=== PATIENT | female | born 1970 | race Caucasian/White ===

== ENCOUNTER 2017-04-28 10:42 | Emergency (ER) | payer OTHER ==
[~2017-04-28] VITALS: Ht 160 cm; Wt 75.0 kg
[2017-04-28 10:45] VITALS: Ht 160 cm; Wt 75.0 kg
[2017-04-28] MEDS ORDERED: HYDROCODONE/APAP (10/325) TAB PO ONE (11:30)
--- NOTE | 2017-04-28 13:04 | RADRPT ---
PROCEDURE: CT abdomen and pelvis without contrast. CLINICAL INDICATION: Abdominal pain. TECHNIQUE: CT scan of the abdomen and pelvis without contrast was performed on a multi-slice CT [facility] . Sagittal and coronal reformatted images were obtained from the axial source images. One or more of the following dose reduction techniques were used: - Automated exposure control. - Adjustment of the mA and/or kV according to patient size. - Use of iterative reconstruction technique. DLP 723.5 mGycm. CTDIvol 11.3 mGy COMPARISON: None FINDINGS: Bibasilar atelectasis is present. Bilateral breast implants are partially visualized. There is limit ed evaluation of the solid viscera from the lack of IV contrast. The kidneys are symmetric bilaterally with no evidence of renal or ureteral calculi. There is no hy dronephrosis or perinephric stranding. There is normal density of the liver with no gross focal lesion or biliary ductal dilatation. The gallbladder is unremarkable without inflammation. The spleen is unremarkable without mass. The adrenal glands are within normal limits without mass. The pancreas is unremarkable without focal lesion or surrounding inflammatory changes. There is no bowel obstruction or focal bowel inflammation. The appendix is not seen. There is a mil dly fecal filled colon. There is no free air or free fluid. There are no enlarged lymph nodes. The aorta is unremarkable and there is no acute osseous abnormality. The uterus and adnexal structures are grossly unremarkable. IMPRESSION: No evidence of renal or ureteral calculi or hydronephrosis. No evidence of bowel obstruction or visible inflammation. The appendix is not seen. There is a mil dly fecal filled colon. Delete the RPTAT: AA .Fortunato Carvajal MD, MD Date Time Electronically viewed and signed by .Fortunato Carvajal MD, MD on 04/28/2017 13:04 .Mikala/
[2017-04-28] MEDS ORDERED: KETOROLAC 60 MG INJ IM STA (13:08)
[2017-04-28] MEDS ORDERED: HYDR-902 PO (13:10)
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
[2017-04-28 14:42] VITALS: BP 128/87; PULSE 83; RESP 18; TEMP 98.2
== END 2017-04-28 14:43 | disposition home or self-care (01) ==
LOC: E/R 10:42
DX: S39.91XA Unspecified injury of abdomen, initial encounter (principal); V49.50XA Passenger injured in collision with unspecified motor vehicles in traffic accident, initial encounter
CPT/HCPCS: 74176; 84703; 96372; 99285; J1885